=== PATIENT | male | born 1965 | race African-American/Black ===

== ENCOUNTER 2024-01-20 17:26 | Emergency (ER) | payer OTHER, SELFPAY ==
[2024-01-20 17:29] VITALS: BP 110/65
[2024-01-20 17:39] LABS: Glucose - Point of Care 94 mg/dl (70-99)
[2024-01-20 18:00] VITALS: BP 92/55
[2024-01-20 18:01] LABS: % Basophils 0.4 % (0-2); % Eosinophils 1.2 % (0-6); % Immature Granulocytes 0.6 % (0-0.5); % Lymphocytes 19.8 % (20.5-51.1); % Monocytes 8.4 % (1.7-9.3); % Neutrophils 69.6 % (42.2-75.2); Absolute Eosinophils 0.1 10^3/uL (0-0.7); Absolute Immature Granulocytes 0.1 10^3/uL (0-0.05); Absolute Lymphocytes 2.1 10^3/uL (1.2-3.4); Absolute Monocytes 0.9 10^3/uL (0.1-0.6); Absolute Neutrophils 7.4 10^3/uL (1.4-6.5); Hematocrit 41.8 % (39.0-52.0); Hemoglobin 14.2 g/dL (13.0-18.0); Mean Corpuscular Hgb 30.9 pg (27.0-31.0); Mean Corpuscular Volume 91.1 fL (80.0-94.0); Mean Platelet Volume 8.8 fL (7.4-10.4); Nucleated Red Blood Cells % 0 % (-); Platelet Count 349 10^3/uL (130-400); Red Blood Cell Count 4.59 10^6/uL (4.70-6.10); Red Cell Dist. Width 13.2 % (11.5-14.5); White Blood Cell Count 10.6 10^3/uL (4.8-10.8)
[2024-01-20 18:13] LABS: ALT (SGPT) 51 U/L (0-50); AST (SGOT) 48 U/L (17-59); Albumin 4.7 g/dl (3.5-5.0); Alkaline Phosphatase 124 U/L (38-126); Blood Urea Nitrogen 14 mg/dl (9-20); Calcium 10.1 mg/dl (8.4-10.2); Carbon Dioxide 26 mmol/L (22-30); Chloride 96 mmol/L (98-107); Glucose 79 mg/dl (70-99); Potassium 4.1 mmol/L (3.5-5.1); Sodium 134 mmol/L (135-145); Total Bilirubin 0.6 mg/dl (0.2-1.3); Total Protein 8.4 g/dl (6.3-8.2); eGFR > 60.00
[2024-01-20 18:24] LABS: Troponin I < 0.012 ng/ml
[2024-01-20] MEDS: NSS 1000 IV (18:37)
[2024-01-20 19:00] VITALS: BP 102/80
[2024-01-20 20:00] VITALS: BP 138/81
--- NOTE | 2024-01-20 20:31 | ED.GENMED ---
History of Present Illness
General
Chief Complaint: Blood Pressure Problem
Source: patient, records and other ([facility] guards)
Exam Limitations: none
Time Seen by Provider: 01/20/24 17:45
Nursing documentation reviewed up to this point in time: agreed with
History of Present Illness
History of Present Illness:
Patient is a 58-year-old male who presents to the emergency department with a low blood pressure that was found at the present. Patient does feel kind of weak and lightheaded. Patient denies syncope. Patient denies headache. Patient denies chest
pain, shortness of breath or palpitations. Patient denies fever or chills. Patient denies any nasal congestion, sore throat or cough. Patient denies abdominal pain but admits to lack of appetite. Patient denies any vomiting or diarrhea. Patient
denies any symptoms. 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 Patient has been using alcohol and crack reportedly and is withdrawing from them at this time.. Patient today does feel tired but denies syncope.
Past History
Past History
ED Past Medical History: Other (Substance abuse)
Social History
Alcohol: Chronic alcoholic
Drug: Former user
Living: [facility]
Review of Systems
Review of Systems
All Other Systems: ROS reviewed and negative except as documented in HPI and ROS
Constitutional: Reports fatigue; Denies fever or chills
EENT: Reports no symptoms
Respiratory: Reports no symptoms
Cardiac: Reports no symptoms
ABD/GI: Reports anorexia; Denies abdominal pain, nausea, vomiting, diarrhea, constipated, bloody stools or black stools
: Reports no symptoms
Musculoskeletal: Reports no symptoms
Skin: Reports no symptoms
Neurological: Reports no symptoms
Hematologic/Lymphatic: Reports no symptoms
Phy Exam
Physical Exam
Physical Exam:
Physical Exam
General: No apparent distress, alert and appropriate, well nourished, dry mucous membranes
HENT: Normocephalic and atraumatic, supple with no lymphadenopathy, no thyromegaly
Eyes: Clear sclera, conjuctiva without injection
Heart: Regular rhythm and rate. No S3, S4. No murmur. No NVD, bruit
Lungs: No respiratory distress, no stridor, lung sounds clear and equal bilaterally, chest wall symmetrical and nontender
Abdomen: Soft, nontender, no organomegaly, no CVA tenderness, BS good
Neuro: Alert and usual mental status, CN II - XII intact, no motor focality, no cerebellar dysfunction
Skin: no rash
Psychiatric: well kept. interactive and cooperative
Extremities: No edema, cyanosis, tenderness
Course
Orders/Labs/Results
Orders:
Orders
01/20/24 17:33
Electrocardiogram (*1) Urgent
Reason for Study: Fatigue / Weakness
EKG- Treatment ONCE
01/20/24 17:34
Complete Blood Count/With Diff Urgent
Comprehensive Metabolic Panel Urgent
Troponin I Urgent
01/20/24 18:25
0.9% Sodium Chloride 1000 ml [Nss] 1,000 ml IV BOLUS
Abnormal Lab Results
01/20/24
17:34
RBC 4.59 L 10^6/uL
(4.70-6.10)
Abs Immat Gran (auto) 0.1 H 10^3/uL
(0-0.05)
Absolute Neuts (auto) 7.4 H 10^3/uL
(1.4-6.5)
Absolute Monos (auto) 0.9 H 10^3/uL
(0.1-0.6)
Immature Gran % 0.6 H %
(0-0.5)
Lymphocytes % 19.8 L %
(20.5-51.1)
Sodium 134 L mmol/L
(135-145)
Chloride 96 L mmol/L
(98-107)
ALT 51 H U/L
(0-50)
Total Protein 8.4 H g/dl
(6.3-8.2)
01/20/24 17:34
01/20/24 17:34
Vital Signs
Initial and Last Documented VS:
Initial Vital Signs
Temp Pulse Resp BP Pulse Ox
97.4 F 59 16 110/65 99
01/20/24 17:29 01/20/24 17:29 01/20/24 17:29 01/20/24 17:29 01/20/24 17:29
Last Documented Vital Signs
Temp Pulse Resp BP Pulse Ox
97.4 F 80 18 138/81 99
01/20/24 17:29 01/20/24 20:15 01/20/24 20:15 01/20/24 20:00 01/20/24 20:15
*Radiology
Radiology exam reviewed: other (na)
*Pulse Oximetry
Patient hypoxic: no
*EKG
Interpreted by ED Provider?: Yes
EKG Intrepretation Date: 01/20/24
EKG Intrepretation Time: 20:36
Interpretation: normal
Comparison EKG: no comparison EKG present
Heart Rate: 66
Rate: normal
Rhythm: sinus
[place]: normal axis
Interval: normal interval
QRS Pattern: normal QRS
Ischemia: no ischemia
*[place] Interpretation
Rate: normal
Interpretation: normal
Heart Rate: 66
Rhythm: sinus
*Critical Care Note
Total Time (30-74mins, 75-104mins- exclusive of procedures): Not Applicable
Update Note
Update Note:
Patient's blood pressure came up with fluid.
ED Attending Note
-
Portions of this chart may have been created with voice recognition software.� Occasional wrong word or��sound alike� substitutions may have occurred due to the inherent limitations of voice recognition software.
Discharge Plan
Departure
Patient Disposition: [facility]
Date of Disposition: 01/20/24
Time of Disposition: 20:37
Patient with high blood pressure during this ER visit?: No
Condition: Fair
Covid-19: Not Applicable
Discharge Problem:
Acute hypotension
Instructions: Orthostatic hypotension, Dehydration, Adult ED
Referrals:
[facility] [Family Provider] -
Activity Restrictions/Additional Instructions:
Increase fluids. Continue present therapy
Interventions
Interventions:
*Risk Screen - Suicide Last Done: 01/20/24 17:29
*General Assessment Last Done: 01/20/24 17:29
*Neglect/Abuse Screening Last Done: 01/20/24 17:29
ED- Cardiac Assessment Last Done: 01/20/24 17:51
ED- Neurological Assessment Last Done: 01/20/24 17:51
ED- Pulmonary Assessment Last Done: 01/20/24 17:51
Discharge Date and Time
Print Language: GEORGIAN
== END 2024-01-20 21:02 ==
LOC: EMR 17:26
PROVIDERS: Physician Assistant; EMERGENCY PHYSICIAN Emergency Medicine
DX: I95.9 Hypotension, unspecified (principal)
CPT/HCPCS: 99283; 96360; 80053; 82962; 84484; 85025; 93005